=== PATIENT | male | born 1975 | race Two or more races ===

== ENCOUNTER 2017-03-24 04:24 | Emergency (ER) | payer SELFPAY ==
[~2017-03-24] VITALS: Ht 177.8 cm; Wt 81.0 kg
[2017-03-24 06:19] VITALS: BP 132/69
[2017-03-24] MEDS ORDERED: VISCOUS LIDOCAINE 2% 15 ML UDC PO STA (06:47)
[2017-03-24] MEDS ORDERED: ACETAMINOPHEN 325MG TABLET PO STA (06:47)
[2017-03-24] MEDS ORDERED: MAGNESIUM/ALUMINUM HYDROXIDE/SIMETHICONE 30ML UDC PO STA (06:47)
[2017-03-24] MEDS ORDERED: DICYCLOMINE 10 MG/5 ML ORAL SYR PO STA (06:47)
[2017-03-24] MEDS ORDERED: ONDANSETRON 4MG ODT PO STA (06:47)
[2017-03-24] MEDS ORDERED: FAMOTIDINE 20MG TABLET PO ONE (07:00)
[2017-03-24 07:27] LABS: BASOPHILS % 0.2 % (0.0-2.0); EOSINOPHILS % 0.2 % (0.0-5.0); HEMATOCRIT. 43.7 % (42.0-52.0); HEMOGLOBIN. 15.1 g/dL (14.0-18.0); LYMPHOCYTES % 10.2 % (20.0-50.0); MEAN CORPUSCULAR HEMOGLOBIN 30.6 pg (28.0-32.0); MEAN CORPUSCULAR VOLUME 88.6 fL (80.0-94.0); MEAN PLATELET VOLUME 8.1 fl (7.4-10.4); MONOCYTES % 4.7 % (2.0-8.0); NEUTROPHILS % 84.7 % (40.0-76.0); PLATELET 224 x1000/uL (130-400); RED BLOOD CELL COUNT 4.93 mill/uL (4.7-6.1); RED CELL DISTRIBUTION WIDTH 13.3 % (11.6-14.6)
[2017-03-24 07:31] LABS: PROTHROMBIN TIME 10.4 sec (9.4-11.6)
[2017-03-24 07:41] LABS: CARBON DIOXIDE 29 mEq/L (21-32); CHLORIDE 96 mEq/L (98-107)
== END 2017-03-24 08:13 | disposition home or self-care (01) ==
LOC: ER 04:24
DX: R11.2 Nausea with vomiting, unspecified (principal); F17.200 Nicotine dependence, unspecified, uncomplicated
CPT/HCPCS: 36415; 80053; 83690; 85025; 85610; 99284; Q0162